=== PATIENT | female | born 1970 | race Caucasian/White ===

== ENCOUNTER 2019-08-01 13:47 | Inpatient (IN) | payer BC ==
[2019-08-01] VITALS (10 sets, daily range): BP systolic 128–163; BP diastolic 68–99; PULSE 76–99; TEMP 97.3–98.4
[~2019-08-01] VITALS: Ht 160 cm; Wt 82.7 kg
--- NOTE | 2019-08-01 15:47 | NUR ---
SEE MERGE DOCUMENTATION FOR MEDICATION ADMINISTRATION AND INTRA/POST PROCEDURE SEDATION ASSESSMENTS.
--- NOTE | 2019-08-01 20:07 | NUR ---
Patient assessed at this time. Alert and oriented x 4, and able to make needs known. Denies having pain and discomfort at this time. Air slowly released from right radial band. Bandaid is on at this time. Peripheral IV to left AC. Denies having SOB and dyspnea. LS CTA upper lobes, diminished lower. HRR. Telemetry in place. Capillary refill less than 3 seconds. Non-tenting skin turgor. No edema. Voices no questions, needs, or concerns at this time. Resting in bed with call light within reach.
[2019-08-02 03:36] VITALS: BP 133/72; PULSE 72; TEMP 98.1
--- NOTE | 2019-08-02 05:25 | NUR ---
Patient has denied having pain and discomfort this shift. Voices no questions, needs, or concerns at this time. Bandaid to right radial site. Gauze to right IJ site. Soft arm board in place. Resting in bed with call light within reach.
[2019-08-02 07:25] LABS: BASO % 0.1 % (0.0-2.0); GRAN % 85.4 % (42.2-75.2); HEMATOCRIT 37.7 % (37.0-47.0); HEMOGLOBIN 12.5 g/dl (12.5-16.0); LYMPH # 1.3 (1.2-3.4); LYMPH % 10.1 % (20.0-51.0); MEAN CELL VOLUME 90 fl (80.0-100.0); MEAN CORPUSCULAR HEMOGLOBIN 30 pg (27.0-31.0); MEAN CORPUSCULAR HGB CONC 33 g/dl (33.0-37.0); MEAN PLATELET VOLUME 11.5 fl (7.4-10.4); MONO # 0.5 (0.1-0.6); MONO % 4.1 % (1.7-9.3); PLATELET COUNT 198 K/mm3 (130-400); RED BLOOD COUNT 4.21 M/mm3 (4.10-5.30); REDCELL DISTRIBUTION WIDTH-CV 14.2 % (11.5-14.5)
[2019-08-02 07:36] LABS: CREATININE, serum 1.04 (0.52-1.25); POTASSIUM 3.3 mmol/L (3.4-5.0)
[2019-08-02 07:47] VITALS: BP 172/69; PULSE 71; TEMP 98
[2019-08-02 11:14] VITALS: BP 173/90; PULSE 68; TEMP 99.3
[2019-08-02] MEDS ORDERED: ZESTRIL40 MG PO (12:39)
[2019-08-02] MEDS ORDERED: LOPRESSOR 225 MG/TAB PO (12:40)
[2019-08-02] MEDS ORDERED: ASPIRIN E.C. 8181 MG PO (12:41)
--- NOTE | 2019-08-02 14:17 | NUR ---
Pt assessment completed and charted, medications administered per MAY. Pt A&O, independent in room. Pt has LAC INT IV that flushed w/o complications. Pt on room air, breathing even and unlabored. Pt denies any pain at this time. Rt radial site from heart cath covered w/ bandaid, CDI. Pt also has RIJ site, covered w/ gauze and tegaderm, CDI. Pulses strong bilaterally. No further concerns at this time. Discharge instructions discussed and reviewed w/ patient who verbalized understanding. LAC IV removed w/ catheter tip intact. Pt escorted out in WC w/ nursing staff.
== END 2019-08-02 14:45 | disposition home or self-care (01) | DRG 280 ==
LOC: MEDICAL 13:47
PROVIDERS: Physician Assistant
PROC: 4A023N8 Measurement of Cardiac Sampling and Pressure, Bilateral, Percutaneous Approach (ICD-10-PCS; principal; 2019-08-01)
PROC: B2111ZZ Fluoroscopy of Multiple Coronary Arteries using Low Osmolar Contrast (ICD-10-PCS; 2019-08-01)
PROC: B2151ZZ Fluoroscopy of Left Heart using Low Osmolar Contrast (ICD-10-PCS; 2019-08-01)
DX: I21.4 Non-ST elevation (NSTEMI) myocardial infarction (principal); J18.9 Pneumonia, unspecified organism; J44.1 Chronic obstructive pulmonary disease with (acute) exacerbation; J44.0 Chronic obstructive pulmonary disease with (acute) lower respiratory infection; I10 Essential (primary) hypertension; E32.9 Disease of thymus, unspecified; F41.9 Anxiety disorder, unspecified; M19.90 Unspecified osteoarthritis, unspecified site; R51 Headache; F32.9 Major depressive disorder, single episode, unspecified; F17.210 Nicotine dependence, cigarettes, uncomplicated; E87.6 Hypokalemia; I16.0 Hypertensive urgency; Z90.710 Acquired absence of both cervix and uterus
CPT/HCPCS: OP; 99222-AI; J0696; J1644; J2250; J3010; J7512; Q9967